=== PATIENT | female | born 1990 | race Caucasian/White ===

== ENCOUNTER → 2017-11-12 | Outpatient (CLI) | payer BC, OTHER ==
[2017-11-12 13:46] LABS: HEMATOCRIT 36.3 % (36.0-47.0); HEMOGLOBIN 12.1 g/dl (12.0-16.0); MEAN CORPUSCULAR HEMOGLOBIN 32.1 pg (27.0-33.0); MEAN CORPUSCULAR HGB CONC 33.3 g/dl (32.0-36.5); MEAN CORPUSCULAR VOLUME 96.3 fl (80.0-96.0); PLATELET COUNT, AUTOMATED 209 10^3/uL (150-450); RED BLOOD COUNT 3.77 10^6/uL (4.00-5.40); RED CELL DISTRIBUTION WIDTH 13.2 % (11.5-14.5)
[2017-11-15 08:40] LABS: TYPE AND SCREEN 1 1
[2017-11-15 10:33] LABS: WHITE BLOOD COUNT 10.4 10^3/uL (4.0-10.0)
[2017-11-15 10:34] LABS: GLUCOSE CHALLENGE TEST 1 HOUR 91 MG/DL (LESS THAN 140)
== END ==
LOC: M SMT 08:39
DX: O34.211 Maternal care for low transverse scar from previous cesarean delivery (principal); Z3A.00 Weeks of gestation of pregnancy not specified
CPT/HCPCS: 82950

== ENCOUNTER → 2017-12-28 | Outpatient (REF) | payer OTHER | LOC: M LAB REF 16:57 | DX: Z34.83 Encounter for supervision of other normal pregnancy, third trimester (principal) ==

== ENCOUNTER 2018-01-20 05:39 | Inpatient (IN) | payer BC, OTHER ==
[2018-01-20 06:23] LABS: HEMATOCRIT 34.7 % (36.0-47.0); HEMOGLOBIN 12.1 g/dl (12.0-16.0); MEAN CORPUSCULAR HEMOGLOBIN 32.1 pg (27.0-33.0); MEAN CORPUSCULAR HGB CONC 34.9 g/dl (32.0-36.5); PLATELET COUNT, AUTOMATED 202 10^3/uL (150-450); RED BLOOD COUNT 3.77 10^6/uL (4.00-5.40); RED CELL DISTRIBUTION WIDTH 13.2 % (11.5-14.5); WHITE BLOOD COUNT 12.8 10^3/uL (4.0-10.0)
[2018-01-20] MEDS: CLINDAMYCIN 900 MG in APPROPRIATE DILUENT 1 EA IV (06:58)
[2018-01-20] MEDS ORDERED: LR 1,000 ML IV (07:00)
[2018-01-20] MEDS: GENTAMICIN 120 MG in D5W 50 ML IV (07:27)
[2018-01-20] MEDS: BICITRA 30ML SOLN UDC PO (07:27)
[2018-01-20] MEDS ORDERED: ONDANSETRON 4MG/2ML VIAL (J2405) As Ordered (07:53)
[2018-01-20] MEDS ORDERED: PHENYLephrine HCL 500 MCG/5 ML (100MCG/ML) SYRINGE (J2370) As Ordered (07:53)
[2018-01-20] MEDS ORDERED: MORPHINE PRES-FREE INJ 10 MG/10 ML VIAL (J2274) As Ordered (07:53)
[2018-01-20] MEDS ORDERED: OXYTOCIN INJ 10 UNITS/ML VIAL (J2590) As Ordered (07:53)
[2018-01-20] MEDS ORDERED: KETOROLAC 60 MG/2 ML VIAL (J1885) As Ordered (08:27)
[2018-01-20] MEDS ORDERED: METOCLOPRAMIDE INJ 10MG/2ML VIAL (J2765) As Ordered (08:39)
[2018-01-20] MEDS ORDERED: PERCOCET 5MG/325MG TAB PO ×3 (09:15→09:45)
[2018-01-20] MEDS ORDERED: ONDANSETRON 4MG/2ML VIAL (J2405) IV ×2 (09:15→09:45)
[2018-01-20] MEDS ORDERED: RHOGAM 300 MCG (1500 IU) INJ (J2790) IM (09:15)
[2018-01-20] MEDS ORDERED: MEASLES,MUMPS,RUBELLA VACCINE INJ (MMR-II) (90707) SC (09:15)
[2018-01-20] MEDS ORDERED: MEPERIDINE INJ 25 MG/ML VIAL (J2175) IV (09:45)
[2018-01-20] MEDS ORDERED: METOCLOPRAMIDE INJ 10MG/2ML VIAL (J2765) IV (09:45)
[2018-01-20] MEDS ORDERED: fentaNYL 100 MCG/2 ML INJECTION (J3010) IV (09:45)
[2018-01-20] MEDS: DOCUSATE SODIUM 100 MG CAP PO ×2 (11:35→21:00)
[2018-01-20] MEDS: LR 1,000 ML IV ×3 (11:36→11:37)
[2018-01-20] MEDS: OXYTOCIN DRIP 30 UNITS in APPROPRIATE DILUENT 1 EA IV (11:36)
[2018-01-20] MEDS: PRENATAL VITAMINS CHEWABLE TABLET PO (11:36)
[2018-01-20] MEDS: PROMETHAZINE 25 MG TAB PO (12:23)
[2018-01-20] MEDS: KETOROLAC 30 MG/ML VIAL (J1885) IV ×2 (17:17→22:09)
[2018-01-21] MEDS: KETOROLAC 30 MG/ML VIAL (J1885) IV ×2 (05:42→10:53)
[2018-01-21 07:45] LABS: HEMOGLOBIN 10.9 g/dl (12.0-16.0); MEAN CORPUSCULAR HEMOGLOBIN 31.7 pg (27.0-33.0); MEAN CORPUSCULAR VOLUME 95.9 fl (80.0-96.0); PLATELET COUNT, AUTOMATED 165 10^3/uL (150-450); RED BLOOD COUNT 3.44 10^6/uL (4.00-5.40); RED CELL DISTRIBUTION WIDTH 13.6 % (11.5-14.5); WHITE BLOOD COUNT 12.2 10^3/uL (4.0-10.0)
[2018-01-21] MEDS: PRENATAL VITAMINS CHEWABLE TABLET PO (09:41)
[2018-01-21] MEDS: DOCUSATE SODIUM 100 MG CAP PO ×2 (09:41→21:04)
[2018-01-21] MEDS: ACETAMINOPHEN 500 MG TAB PO (17:35)
[2018-01-21] MEDS: IBUPROFEN 800 MG TAB PO (18:56)
[2018-01-21] MEDS: guaiFENesin SYRUP 200 MG/10 ML UDC PO (22:05)
[2018-01-22] MEDS: IBUPROFEN 800 MG TAB PO ×2 (03:21→11:00)
[2018-01-22] MEDS: PRENATAL VITAMINS CHEWABLE TABLET PO (08:49)
[2018-01-22] MEDS: DOCUSATE SODIUM 100 MG CAP PO (08:49)
== END 2018-01-22 11:20 | disposition home or self-care (01) | DRG 540 ==
LOC: M LDI 05:39 → M OBS 10:43
PROVIDERS: Obstetrics & Gynecology
PROC: 10D00Z1 Extraction of Products of Conception, Low, Open Approach (ICD-10-PCS; principal; 2018-01-20 07:30)
PROC: 0UL70ZZ Occlusion of Bilateral Fallopian Tubes, Open Approach (ICD-10-PCS; 2018-01-20 07:30)
DX: O34.211 Maternal care for low transverse scar from previous cesarean delivery (principal); Z88.0 Allergy status to penicillin; Z37.0 Single live birth; Z3A.39 39 weeks gestation of pregnancy; Z30.2 Encounter for sterilization; Z88.1 Allergy status to other antibiotic agents; Z88.2 Allergy status to sulfonamides

== ENCOUNTER 2018-02-23 20:16 | Emergency (ER) | payer BC, OTHER | END 2018-02-24 00:08 | disposition left against medical advice (07) | LOC: M ED 02-24 00:08 | DX: M54.9 Dorsalgia, unspecified (principal); R10.9 Unspecified abdominal pain; Z53.21 Procedure and treatment not carried out due to patient leaving prior to being seen by health care provider ==